=== PATIENT | male | born 1960 | race Caucasian/White ===

== ENCOUNTER 2022-03-21 16:18 | Inpatient (IN) | payer MEDICAID ==
[~2022-03-21] VITALS: Ht 167.6 cm; Wt 63.1 kg
[2022-03-21 17:33] LABS: BASOPHILS % (AUTO) 0.7 % (0.0-2.0); EOSINOPHILS % (AUTO) 3.8 % (1.0-6.0); HEMATOCRIT 39.5 % (41-53); LYMPHOCYTES # (AUTO) 1.7 K/uL (1.0-4.8); LYMPHOCYTES % (AUTO) 25.8 % (22.0-44.0); MEAN CORPUSCULAR HEMOGLOBIN 27.1 pg (26.0-34.0); MEAN CORPUSCULAR HGB CONC 32.9 G/dL (31.0-37.0); MEAN CORPUSCULAR VOLUME 82 fL (80-100); MONOCYTES # (AUTO) 0.4 K/uL (0.1-1.0); MONOCYTES % (AUTO) 6.2 % (2.0-9.0); NEUTROPHILS # (AUTO) 4.3 K/uL (1.8-7.7); NEUTROPHILS % (AUTO) 63.5 % (40.0-70.0); PLATELET COUNT (AUTO) 362 K/uL (150-450); RED BLOOD CELL COUNT(AUTO) 4.79 MIL/uL (4.50-5.90); RED CELL DISTRIBUTION WIDTH 14.4 % (11.5-14.5)
[2022-03-21 17:50] LABS: ALANINE AMINOTRANSFERASE 15 U/L (12-78); ALBUMIN 3.6 g/dL (3.4-5.0); ALKALINE PHOSPHATASE 198 U/L (46-116); ANION GAP 8 mmol/L (8-16); ASPARTATE AMINOTRANSFERASE 12 U/L (15-37); BILIRUBIN,TOTAL 0.2 mg/dL (0.1-1.0); CALCIUM, TOTAL 9.3 mg/dL (8.8-10.5); CARBON DIOXIDE 27 mmol/L (22-29); CHLORIDE 101 mmol/L (98-107); CREATININE 1.61 mg/dL (0.60-1.30); POTASSIUM 4.8 mmol/L (3.5-5.1); SODIUM SERUM 136 mmol/L (136-145); TOTAL PROTEIN, SERUM 8.6 g/dL (6.4-8.2); UREA NITROGEN, BLOOD 36 mg/dL (7-18)
[2022-03-21 17:51] LABS: GLOMERULAR FILTR. RATE CALC 44 mL/min (>60); GLUCOSE,RANDOM 404 mg/dL (70-110)
[2022-03-21 18:50] LABS: AMPHET/METH SCREEN,URINE POSITIVE (NEGATIVE); BARBITURATE SCREEN, URINE NEGATIVE (NEGATIVE); BENZODIAZEPINES SCREEN,URINE NEGATIVE (NEGATIVE); CANNABINOID SCREEN,URINE NEGATIVE (NEGATIVE); COCAINE SCREEN,URINE NEGATIVE (NEGATIVE); METHADONE SCREEN, URINE NEGATIVE (NEGATIVE); OPIATE SCREEN,URINE NEGATIVE (NEGATIVE)
[2022-03-21 18:53] LABS: PHENCYCLIDINE SCREEN,URINE NEGATIVE (NEGATIVE)
[2022-03-21 19:51] LABS: COVID AG,FIA SOURCE NASAL SWAB
[2022-03-21] MEDS ORDERED: ZOLPIDEM TARTRATE 10 MG TABLET PO PRN (21:15)
[2022-03-21] MEDS ORDERED: LORazepam 2 MG TABLET PO PRN (21:15)
[2022-03-21] MEDS ORDERED: HALOPERIDOL 5 MG TABLET PO PRN (21:15)
[2022-03-21] MEDS ORDERED: SODIUM CHLORIDE 0.9% 1,000 ML IV ONE (21:30)
[2022-03-21] MEDS ORDERED: INSULIN REGULAR, HUMAN 100 UNITS/ML IVP ONE (21:45)
[2022-03-21 22:17] LABS: APPEARANCE,URINE CLEAR (CLEAR); BILIRUBIN,URINE NEGATIVE (NEGATIVE); GLUCOSE, URINE (UA) >=1000 mg/dL (NEGATIVE); KETONES,URINE NEGATIVE (NEGATIVE); LEUKOCYTE ESTERASE ,URINE NEGATIVE (NEGATIVE); NITRATE,URINE NEGATIVE (NEGATIVE); OCCULT BLOOD,URINE NEGATIVE (NEGATIVE); PH,URINE 6.5 (5.0-8.0); PROTEIN,URINE NEGATIVE (NEGATIVE); SPECIFIC GRAVITIY, URINE 1.021 (1.003-1.030); UROBILINOGEN,URINE <=1.0 mg/dL (<=1.0)
[2022-03-21 22:55] LABS: BACTERIA,URINE None Seen /HPF (None Seen); RBC,URINE None Seen /HPF (0-2); WBC,URINE None Seen /HPF (0-5)
[2022-03-22 01:32] VITALS: BP 134/94
[2022-03-22] MEDS ORDERED: INFLUENZA VIRUS VACCINE QVS 2022-23 (6MO+)/PF 60 MCG/0.5 ML SYRINGE IM. ONE (03:15)
[2022-03-22] MEDS ORDERED: PNEUMOCOCCAL VACCINE POLYVALENT 0.5 ML VIAL [PPSV23] IM. ONE (03:15)
[2022-03-22] MEDS ORDERED: ALBUTEROL SULFATE HFA 90 MCG/PUFF 8 GM INHALER IH PRN (06:45)
[2022-03-22] MEDS ORDERED: CloNIDine HCL 0.1 MG TABLET PO PRN (06:45)
[2022-03-22] MEDS ORDERED: DEXTROSE 50%-WATER 25 GM/50 ML SYRINGE IVP PRN (06:45)
[2022-03-22] MEDS ORDERED: DOCUSATE SODIUM 100 MG CAPSULE PO PRN (06:45)
[2022-03-22] MEDS ORDERED: ONDANSETRON HCL 4 MG TABLET PO PRN (06:45)
[2022-03-22] MEDS ORDERED: IBUPROFEN 400 MG TABLET PO PRN (06:45)
[2022-03-22] MEDS ORDERED: NICOTINE 14 MG/24 HOUR PATCH TD PRN (06:45)
[2022-03-22] MEDS ORDERED: MAGNESIUM HYDROXIDE SUSPENSION 30 ML UDCUP PO PRN (06:45)
[2022-03-22] MEDS ORDERED: ACETAMINOPHEN 325 MG TABLET PO PRN (06:45)
[2022-03-22] MEDS ORDERED: GuaiFENesin/D-METHORPHAN [SUGAR-FREE] 200-20MG/10 ML SYRUP UDCUP PO PRN (06:45)
[2022-03-22] MEDS ORDERED: LOPERAMIDE HCL 2 MG CAPSULE PO PRN (06:45)
[2022-03-22] MEDS ORDERED: MAG HYDROX/AL HYDROX/SIMETH ES 30 ML SUSPENSION UDCUP PO PRN (06:45)
[2022-03-22] MEDS ORDERED: PETROLATUM,WHITE 28 GM JELLY TP PRN (06:45)
[2022-03-22] MEDS: INSULIN LISPRO 100 UNITS/ML SQ PRN ×4 (06:58→21:05)
[2022-03-22 07:12] LABS: GLUCOMETER DEV NAME(LOC) 3EX.2; GLUCOSE,POINT OF CARE 318 MG/DL (70-110)
[2022-03-22 09:05] VITALS: BP 153/99
[2022-03-22 11:36] LABS: GLUCOMETER DEV NAME(LOC) 3EX.2; GLUCOSE,POINT OF CARE 201 MG/DL (70-110)
[2022-03-22] MEDS: SERTRALINE HCL 50 MG TABLET PO SCH (12:53)
[2022-03-22 16:01] LABS: GLUCOMETER DEV NAME(LOC) 3EX.2; GLUCOSE,POINT OF CARE 204 MG/DL (70-110)
[2022-03-22 17:42] VITALS: BP 124/93
[2022-03-22] MEDS: ATORVASTATIN CALCIUM 10 MG TABLET PO SCH (20:19)
[2022-03-22 20:40] LABS: GLUCOMETER DEV NAME(LOC) 3EX.2; GLUCOSE,POINT OF CARE 351 MG/DL (70-110)
[2022-03-23 05:46] LABS: GLUCOMETER DEV NAME(LOC) 3EX.2; GLUCOSE,POINT OF CARE 243 MG/DL (70-110)
[2022-03-23] MEDS: INSULIN LISPRO 100 UNITS/ML SQ PRN ×4 (06:58→21:30)
[2022-03-23 07:31] LABS: CHOL/HDL RATIO 2.2 (4.2-7.3)
[2022-03-23 08:00] VITALS: BP 149/93
[2022-03-23] MEDS: TAMSULOSIN HCL 0.4 MG CAPSULE PO SCH (11:30)
[2022-03-23] MEDS: MULTIVITAMINS WITH MINERALS, THERAPEUTIC TABLET PO SCH (11:30)
[2022-03-23] MEDS: LevETIRAcetam 500 MG TABLET PO SCH ×2 (11:30→18:27)
[2022-03-23] MEDS: SERTRALINE HCL 50 MG TABLET PO SCH (11:31)
[2022-03-23] MEDS: LISINOPRIL 5 MG TABLET PO SCH (11:31)
[2022-03-23 11:56] LABS: GLUCOMETER DEV NAME(LOC) 3EX.2; GLUCOSE,POINT OF CARE 283 MG/DL (70-110)
[2022-03-23 16:00] VITALS: BP 126/73
[2022-03-23 17:41] LABS: GLUCOMETER DEV NAME(LOC) 3EX.2; GLUCOSE,POINT OF CARE 170 MG/DL (70-110)
[2022-03-23 20:46] LABS: GLUCOMETER DEV NAME(LOC) 3EX.2; GLUCOSE,POINT OF CARE 187 MG/DL (70-110)
[2022-03-23] MEDS: ATORVASTATIN CALCIUM 10 MG TABLET PO SCH (21:25)
[2022-03-24 06:06] LABS: GLUCOMETER DEV NAME(LOC) 3EX.2; GLUCOSE,POINT OF CARE 288 MG/DL (70-110)
[2022-03-24] MEDS: INSULIN LISPRO 100 UNITS/ML SQ PRN ×4 (06:59→21:33)
[2022-03-24 08:30] VITALS: BP 108/65
[2022-03-24 08:56] LABS: GLUCOMETER DEV NAME(LOC) 3EX.2; GLUCOSE,POINT OF CARE 95 MG/DL (70-110)
[2022-03-24] MEDS: LevETIRAcetam 500 MG TABLET PO SCH ×2 (09:53→16:35)
[2022-03-24] MEDS: SERTRALINE HCL 50 MG TABLET PO SCH (09:53)
[2022-03-24] MEDS: TAMSULOSIN HCL 0.4 MG CAPSULE PO SCH (09:53)
[2022-03-24] MEDS: MULTIVITAMINS WITH MINERALS, THERAPEUTIC TABLET PO SCH (09:53)
[2022-03-24] MEDS: LISINOPRIL 5 MG TABLET PO SCH (09:54)
[2022-03-24 11:31] LABS: GLUCOMETER DEV NAME(LOC) 3EX.2; GLUCOSE,POINT OF CARE 255 MG/DL (70-110)
[2022-03-24 16:06] LABS: GLUCOMETER DEV NAME(LOC) 3EX.2; GLUCOSE,POINT OF CARE 188 MG/DL (70-110)
[2022-03-24 16:12] VITALS: BP 116/67
[2022-03-24 20:36] LABS: GLUCOMETER DEV NAME(LOC) 3EX.2; GLUCOSE,POINT OF CARE 273 MG/DL (70-110)
[2022-03-24] MEDS: ATORVASTATIN CALCIUM 10 MG TABLET PO SCH (21:11)
[2022-03-25 06:01] LABS: GLUCOMETER DEV NAME(LOC) 3EX.2; GLUCOSE,POINT OF CARE 290 MG/DL (70-110)
[2022-03-25] MEDS: INSULIN LISPRO 100 UNITS/ML SQ PRN ×2 (07:04→12:03)
[2022-03-25 08:05] VITALS: BP 115/70
[2022-03-25] MEDS: MULTIVITAMINS WITH MINERALS, THERAPEUTIC TABLET PO SCH (08:23)
[2022-03-25] MEDS: LevETIRAcetam 500 MG TABLET PO SCH (08:23)
[2022-03-25] MEDS: TAMSULOSIN HCL 0.4 MG CAPSULE PO SCH (08:23)
[2022-03-25] MEDS: LISINOPRIL 5 MG TABLET PO SCH (08:23)
[2022-03-25] MEDS: SERTRALINE HCL 50 MG TABLET PO SCH (08:23)
[2022-03-25 11:21] LABS: GLUCOMETER DEV NAME(LOC) 3EX.2; GLUCOSE,POINT OF CARE 200 MG/DL (70-110)
[2022-03-25] MEDS ORDERED: LEVE500T8 PO (13:59)
[2022-03-25] MEDS ORDERED: SERT-439 PO (13:59)
[2022-03-25] MEDS ORDERED: ATOR10TA69 PO (13:59)
[2022-03-25] MEDS ORDERED: TAMS-13 PO (13:59)
[2022-03-25] MEDS ORDERED: LISI-892 PO (13:59)
[2022-03-25] MEDS ORDERED: MULT-1239 PO (13:59)
[2022-03-25] MEDS ORDERED: INSLAN SQ (16:27)
[2022-03-25] MEDS ORDERED: SYRI-590 SQ (16:27)
== END 2022-03-25 13:55 | disposition home or self-care (01) | DRG 751 ==
LOC: EMS 16:19 → 3EI 03-22 00:57
PROVIDERS: ADMIT Psychiatry & Neurology Psychiatry; ATTEND Psychiatry & Neurology Psychiatry
DX: F33.2 Major depressive disorder, recurrent severe without psychotic features (principal); R45.851 Suicidal ideations; I13.0 Hypertensive heart and chronic kidney disease with heart failure and stage 1 through stage 4 chronic kidney disease, or unspecified chronic kidney disease; E11.22 Type 2 diabetes mellitus with diabetic chronic kidney disease; I50.9 Heart failure, unspecified; J45.909 Unspecified asthma, uncomplicated; F15.10 Other stimulant abuse, uncomplicated; Z20.822 Contact with and (suspected) exposure to COVID-19; E78.5 Hyperlipidemia, unspecified; F10.10 Alcohol abuse, uncomplicated; N18.9 Chronic kidney disease, unspecified; N40.0 Benign prostatic hyperplasia without lower urinary tract symptoms; F19.10 Other psychoactive substance abuse, uncomplicated; Y90.9 Presence of alcohol in blood, level not specified; Z79.899 Other long term (current) drug therapy
CPT/HCPCS: 80053; 80061; 80307; 81001; 81003; 82962; 83036; 85025; 99285; G0480; J1815